=== PATIENT | male | born 1975 | race Caucasian/White ===

== ENCOUNTER → 2016-11-24 12:52 | Outpatient (CLI) | payer MEDICAID ==
[2016-11-14 07:13] VITALS: BMI 23.1
[~2016-11-24 12:52] MED LIST: BENTYL10 MG PO; DEMEROL50 MG PO; HYDROCODON-ACE1 EAC7 PO; HYDROCODONE-APA1 TAB; NUCYNTA100 MG PO; OMEPRAZOLE40 MG PO; PEPCID AC20 MG PO; PHENERGAN25 M1 PO; PRILOSEC20 MG PO; SOMA350 MG PO; ZOFRAN ODT4 MG/UDTAB PO
== END | disposition home or self-care (01) ==
LOC: D.US 12:52
DX: M79.605 Pain in left leg (principal); R60.0 Localized edema